=== PATIENT | female | born 2000 | race Hispanic/Latino ===

== ENCOUNTER 2024-02-07 09:31 | Day surgery (SDC) | payer BC ==
[2024-02-05 13:48] VITALS: BMI 27.9
[2024-02-05 14:14] LABS: Hematocrit 41.9 % (34.9-44.5); Hemoglobin 13.6 g/dL (12.0-15.5); Mean Corpuscular HGB CONC 32.5 g/dL (32.0-36.0); Mean Corpuscular Hemoglobin 28.2 pg (27.0-33.0); Mean Corpuscular Volume 86.7 fL (81.6-98.3); Mean Platelet Volume 9.1 fL (7.4-10.4); Platelet Count 467 10x3/uL (150-450); RBC Distribution Width 12.2 % (11.5-14.5); Red Blood Cell (RBC) Count 4.83 10x6/uL (3.90-5.03); White Blood Cell (WBC) Count 7.7 10x3/uL (3.5-10.5)
[2024-02-05 14:30] LABS: BHCG - Serum Negative (NEGATIVE); Pregs Control Background? CLEAR/WHITE (CLR/WHITE); Pregs Control Bar Appear? YES (CONTROL BAR)
[2024-02-07] MEDS ORDERED: Gabapentin 300 MG CAP ONE (09:49)
[2024-02-07] MEDS ORDERED: CeleCOXIB 100 MG CAP ONE (09:49)
[2024-02-07] MEDS ORDERED: Famotidine/PF 20 mg/2ml Vial ONE (09:50)
[2024-02-07] MEDS ORDERED: SUGAMMADEX SODIUM 200 MG/2 ML VIAL ONE (10:07)
[2024-02-07] MEDS ORDERED: Dexamethasone 20 MG/5 ML VIAL ONE (10:07)
[2024-02-07] MEDS ORDERED: Lidocaine 2% PF 5 ML VIAL ONE (10:07)
[2024-02-07] MEDS ORDERED: Ondansetron PF 4 MG/2 ML Vial ONE ×2 (10:07→14:50)
[2024-02-07] MEDS ORDERED: Rocuronium Bromide 10 MG/ML (10ML VIAL) ONE (10:07)
[2024-02-07] MEDS ORDERED: PROPOFOL 20 ML ONE (10:17)
[2024-02-07] MEDS ORDERED: Midazolam HCl 2 mg/2 ml Vial ONE (10:57)
[2024-02-07] MEDS ORDERED: Bupivacaine HCl 0.5%/Epinephrine 1:200,000/PF 30 ml Vial ONE (11:44)
[2024-02-07] MEDS ORDERED: fentaNYL 50 mcg/mL 1 mL Vial ONE ×2 (11:44→13:58)
[2024-02-07] MEDS ORDERED: CEFAZOLIN 2 GM VIAL ONE (12:15)
[2024-02-07] MEDS ORDERED: PHENYLEPHRINE-NS 100 MCG/ML 10 ML SYRINGE ONE (12:49)
[2024-02-07] MEDS ORDERED: HYDROcodone/Acetaminophen 5/325 mg Tablet ONE (14:39)
== END 2024-02-07 15:25 | disposition home or self-care (01) ==
LOC: CSHSDC 09:31
PROVIDERS: ATTEND Obstetrics & Gynecology
PROC: 0UBF4ZZ Excision of Cul-de-sac, Percutaneous Endoscopic Approach (ICD-10-PCS; principal; 2024-02-07)
DX: R10.2 Pelvic and perineal pain (principal); Z98.890 Other specified postprocedural states; Z90.89 Acquired absence of other organs
CPT/HCPCS: 36415; 84703; 85027; 86850; 86900; 86901; 88305; 88342; J1100; J2250; J2405; J2704; J3010; J3490; S2900